=== PATIENT | female | born 1945 | race Caucasian/White ===

== ENCOUNTER 2023-03-11 10:36 | Inpatient (IN) | payer MEDICARE, OTHER ==
[~2023-03-11] VITALS: Ht 157.5 cm; Wt 81.6 kg
[2023-03-11] MEDS ORDERED: HYDROMORPHONE 1 MG/1 ML DISP.SYRIN IM ONE (10:45)
[2023-03-11] MEDS ORDERED: HYDROMORPHONE 1 MG/1 ML DISP.SYRIN ONE (10:45)
[2023-03-11] MEDS ORDERED: ONDANSETRON 4 MG/2 ML VIAL ONE (10:46)
[2023-03-11] MEDS ORDERED: GABA600T12 PO (11:04)
[2023-03-11] MEDS ORDERED: MIRA25TA PO (11:04)
[2023-03-11] MEDS ORDERED: SITA50TA PO (11:04)
[2023-03-11] MEDS ORDERED: MAGN400C PO (11:04)
[2023-03-11] MEDS ORDERED: DENO60DI SQ (11:04)
[2023-03-11] MEDS ORDERED: DENO60DI SUBCUT (11:04)
[2023-03-11] MEDS ORDERED: DICL25TA10 PO (11:04)
[2023-03-11] MEDS ORDERED: ENAL20TA18 PO (11:04)
[2023-03-11] MEDS ORDERED: MECL-225 PO (11:04)
[2023-03-11] MEDS ORDERED: IBUP-1953 PO (11:04)
[2023-03-11] MEDS ORDERED: MV-M1TAB18 PO (11:04)
[2023-03-11] MEDS ORDERED: ASPI81TA31 PO (11:04)
[2023-03-11] MEDS ORDERED: ESTR42.53 VG (11:04)
[2023-03-11] MEDS ORDERED: TOLT2CAP PO (11:04)
[2023-03-11] MEDS ORDERED: ROSU20TA2 PO (11:04)
[2023-03-11] MEDS ORDERED: METO50TA7 PO (11:04)
[2023-03-11] MEDS ORDERED: CELE200C PO (11:04)
[2023-03-11] MEDS ORDERED: ACET-2030 PO (11:04)
[2023-03-11 11:13] LABS: BASOPHILS # (AUTO) 0.1 K/UL (0.0-0.2); BASOPHILS % (AUTO) 0.9 % (0.0-2.0); EOSINOPHILS # (AUTO) 0.1 K/uL (0.0-0.7); EOSINOPHILS % (AUTO) 1.6 % (0.0-7.0); HEMATOCRIT 38.6 % (31.2-41.9); HEMOGLOBIN 12.5 g/dL (10.9-14.3); LYMPHOCYTES # (AUTO) 1.4 K/uL (0.8-4.8); LYMPHOCYTES % (AUTO) 18.6 % (20.5-51.5); MEAN CORPUSCULAR HEMOGLOBIN 26.6 uug (24.7-32.8); MEAN CORPUSCULAR HGB CONC 32 g/dL (32.3-35.6); MONOCYTES # (AUTO) 0.6 K/uL (0.1-1.30); MONOCYTES % (AUTO) 8.2 % (0.0-11.0); NEUTROPHILS # (AUTO) 5.2 K/uL (1.8-8.9); NEUTROPHILS % (AUTO) 70.7 % (38.5-71.5); PLATELET COUNT (AUTO) 188 K/uL (179-408); RED BLOOD CELL COUNT(AUTO) 4.71 MIL/uL (3.63-4.92); RED CELL DISTRIBUTION WIDTH 14.6 % (12.3-17.7); WHITE BLOOD COUNT (AUTO) 7.3 K/uL (3.8-11.8)
[2023-03-11] MEDS ORDERED: ONDANSETRON 4 MG/2 ML VIAL IV ONE (11:15)
[2023-03-11 11:21] LABS: CARBON DIOXIDE 24 mmol/L (21-32); CHLORIDE 105 mmol/L (98-107); CREATININE 0.6 mg/dL (0.6-1.3); GLUCOSE 141 mg/dL (74-106); POTASSIUM 3.9 mmol/L (3.5-5.1); SODIUM SERUM 140 mmol/L (136-145); UREA NITROGEN, BLOOD 21 mg/dL (7-18)
[2023-03-11] MEDS ORDERED: METOCLOPRAMIDE HCL 10 MG/2 ML VIAL ONE (11:21)
[2023-03-11 11:29] LABS: DIFFERENTIAL COMMENT 1
[2023-03-11] MEDS ORDERED: METOCLOPRAMIDE HCL 10 MG/2 ML VIAL IV ONE (11:30)
[2023-03-11] MEDS ORDERED: SWABABLE VALVE TRANSFER SET EA MC ONE (11:37)
[2023-03-11] MEDS ORDERED: IOHEXOL 300MG/ML 100 ML INFUS..BTL ONE (11:37)
[2023-03-11] MEDS ORDERED: IV NORMAL SALINE 250 ML IV ONE (11:37)
[2023-03-11] MEDS ORDERED: PROCHLORPERAZINE EDISYLATE 10 MG/2 ML VIAL IV ONE (13:15)
[2023-03-11] MEDS ORDERED: KETOROLAC TROMETHAMINE 15 MG INJ IVP ONE (13:15)
[2023-03-11] MEDS ORDERED: diphenhydrAMINE 50 MG/1 ML VIAL IV ONE (13:15)
[2023-03-11] MEDS ORDERED: KETOROLAC TROMETHAMINE 15 MG INJ ONE (13:24)
[2023-03-11] MEDS ORDERED: PROCHLORPERAZINE EDISYLATE 10 MG/2 ML VIAL ONE (13:24)
[2023-03-11] MEDS ORDERED: diphenhydrAMINE 50 MG/1 ML VIAL ONE (13:25)
[2023-03-11] MEDS ORDERED: ASPIRIN 81 MG TAB.CHEW ONE (13:42)
[2023-03-11] MEDS ORDERED: ASPIRIN 81 MG TAB.CHEW PO ONE (13:45)
[2023-03-11] MEDS ORDERED: HEPARIN/D5W DRIP 500 ML IV PRN (13:45)
[2023-03-11 16:07] VITALS: BP 151/68; TEMP 97.5; O2SAT 96
[2023-03-11] MEDS ORDERED: ENOXAPARIN SODIUM 30 MG/0.3 ML DISP.SYRIN SQ ONE (17:30)
[2023-03-11] MEDS ORDERED: ONDANSETRON 4 MG/2 ML VIAL IV PRN (17:30)
[2023-03-11] MEDS ORDERED: REMEDY ESSENTIAL ZINC PASTE 113 GM TP PRN (17:30)
[2023-03-11] MEDS ORDERED: INSULIN REGULAR, HUMAN 300 UNIT/3 ML VIAL SQ PRN (17:30)
[2023-03-11] MEDS ORDERED: MORPHINE SULFATE 2 MG/1 ML DISP.SYRIN IV PRN (17:30)
[2023-03-11] MEDS ORDERED: NITROGLYCERIN 0.4 MG/TAB BOTTLE SL PRN (17:30)
[2023-03-11] MEDS ORDERED: INSULIN REGULAR, HUMAN 300 UNITS/3 ML VIAL SQ PRN (17:30)
[2023-03-11] MEDS ORDERED: ZOLPIDEM 5 MG TABLET PO PRN (17:30)
[2023-03-11] MEDS ORDERED: MECLIZINE HCL 12.5 MG TABLET PO PRN (17:30)
[2023-03-11] MEDS ORDERED: DEXTROSE 50% 50 ML DISP.SYRIN IV PRN (17:30)
[2023-03-11] MEDS ORDERED: MAGNESIUM HYDROXIDE 30 ML LIQUID UDC PO PRN (17:30)
[2023-03-11] MEDS ORDERED: ACETAMINOPHEN ES 500 MG TABLET- SA PATIENTS-PAIN ONLY PO SCH (17:30)
[2023-03-11] MEDS ORDERED: ACETAMINOPHEN 325 MG TABLET PO PRN (17:30)
[2023-03-11 20:10] VITALS: BP 118/57; TEMP 97.5; O2SAT 98
[2023-03-11] MEDS: ENALAPRIL 10 MG TABLET PO SCH (20:14)
[2023-03-11] MEDS: BLOOD SUGAR DIAGNOSTIC 1 EACH STRIP VI SCH (20:18)
[2023-03-11] MEDS ORDERED: GABAPENTIN 300 MG CAPSULE PO SCH (21:00)
[2023-03-11] MEDS ORDERED: ATORVASTATIN 40 MG TABLET PO SCH (21:00)
[2023-03-11 23:01] LABS: *BILIRUBIN,URIN NEGATIVE (NEGATIVE); *BLOOD, URINE NEGATIVE (NEGATIVE); *CLARITY,URINE CLEAR (CLEAR); *COLOR,URINE YELLOW (YELLOW); *KETONES,URINE NEGATIVE (NEGATIVE); *PROTEIN,URINE NEGATIVE (NEGATIVE); *UROBILINOGEN,URINE 0.2 E.U./dl (NORMAL); LEUKOCYTE ESTERASE ,URINE NEGATIVE (NEGATIVE); NITRITE, URINE NEGATIVE (NEGATIVE); PH,URINE 7.5 (5.0-8.0); UGLUCOSE NEGATIVE (NEGATIVE)
[2023-03-11 23:58] VITALS: BP 131/61; TEMP 98.1; O2SAT 93
[2023-03-12 05:30] VITALS: BP 135/69; TEMP 98.1; O2SAT 96
[2023-03-12] MEDS: BLOOD SUGAR DIAGNOSTIC 1 EACH STRIP VI SCH (06:36)
[2023-03-12 07:06] LABS: BASOPHILS # (AUTO) 0.1 K/UL (0.0-0.2); BASOPHILS % (AUTO) 1.2 % (0.0-2.0); EOSINOPHILS # (AUTO) 0.2 K/uL (0.0-0.7); EOSINOPHILS % (AUTO) 2.8 % (0.0-7.0); HEMATOCRIT 33.1 % (31.2-41.9); HEMOGLOBIN 10.8 g/dL (10.9-14.3); LYMPHOCYTES # (AUTO) 1.5 K/uL (0.8-4.8); LYMPHOCYTES % (AUTO) 25.9 % (20.5-51.5); MEAN CORPUSCULAR HEMOGLOBIN 26.9 uug (24.7-32.8); MEAN CORPUSCULAR HGB CONC 33 g/dL (32.3-35.6); MEAN CORPUSCULAR VOLUME 82.1 fL (75.5-95.3); MONOCYTES # (AUTO) 0.6 K/uL (0.1-1.30); MONOCYTES % (AUTO) 9.6 % (0.0-11.0); NEUTROPHILS # (AUTO) 3.6 K/uL (1.8-8.9); NEUTROPHILS % (AUTO) 60.5 % (38.5-71.5); PLATELET COUNT (AUTO) 160 K/uL (179-408); RED BLOOD CELL COUNT(AUTO) 4.02 MIL/uL (3.63-4.92); RED CELL DISTRIBUTION WIDTH 14.3 % (12.3-17.7); WHITE BLOOD COUNT (AUTO) 5.9 K/uL (3.8-11.8)
[2023-03-12 07:13] LABS: CALCIUM 8.6 mg/dL (8.5-10.1); CARBON DIOXIDE 24 mmol/L (21-32); CHLORIDE 109 mmol/L (98-107); CREATININE 0.4 mg/dL (0.6-1.3); DIFFERENTIAL COMMENT 1; GLUCOSE 93 mg/dL (74-106); MAGNESIUM 2.3 mg/dL (1.8-2.4); PHOSPHOROUS 2.7 mg/dL (2.5-4.9); POTASSIUM 3.4 mmol/L (3.5-5.1); SODIUM SERUM 127 mmol/L (136-145); UREA NITROGEN, BLOOD 15 mg/dL (7-18)
[2023-03-12 08:00] VITALS: BP 120/63; TEMP 98.4; O2SAT 97
[2023-03-12] MEDS ORDERED: DICLOFENAC 25 MG TABLET.DR PO SCH (09:00)
[2023-03-12] MEDS ORDERED: ASPIRIN 81 MG TAB.CHEW PO SCH (09:00)
[2023-03-12] MEDS ORDERED: TOLTERODINE LA 2 MG CAP.SR.24H PO SCH (09:00)
[2023-03-12] MEDS ORDERED: Medication Not On Formulary EA (Rosuvastatin Calcium (Crestor) 1 TAB) PO SCH (09:00)
[2023-03-12] MEDS: ENALAPRIL 10 MG TABLET PO SCH (09:15)
[2023-03-12 11:37] VITALS: BP 103/67; TEMP 97.7; O2SAT 98
[2023-03-12] MEDS ORDERED: METOPROLOL SUCCINATE XL 50 MG TAB.SR.24H PO SCH (19:01)
[2023-03-12] MEDS ORDERED: ENOXAPARIN SODIUM 30 MG/0.3 ML DISP.SYRIN SUBCUT SCH (21:00)
== END 2023-03-12 11:25 | disposition left against medical advice (07) | DRG 392 ==
LOC: ER 10:36 → TELE3 14:21
PROVIDERS: ADMIT Internal Medicine; ATTEND Internal Medicine
DX: A08.4 Viral intestinal infection, unspecified (principal); E11.42 Type 2 diabetes mellitus with diabetic polyneuropathy; Z79.84 Long term (current) use of oral hypoglycemic drugs; Z79.82 Long term (current) use of aspirin; Z79.899 Other long term (current) drug therapy; I10 Essential (primary) hypertension; Z88.6 Allergy status to analgesic agent; N32.81 Overactive bladder; Z53.29 Procedure and treatment not carried out because of patient's decision for other reasons; Z86.73 Personal history of transient ischemic attack (TIA), and cerebral infarction without residual deficits; Z96.642 Presence of left artificial hip joint
CPT/HCPCS: 36415; 70450; 71045; 83605; 83690; 83735; 84100; 84484; 85025; 93005; 93307; A4606; A4663; G0378; J0780; J1170; J1200; J1650; J1815; J1885; J2405; J2765; J7040; Q9967